=== PATIENT | male | born 1960 | race Hispanic/Latino ===

== ENCOUNTER 2019-01-06 05:56 | Day surgery (SDC) | payer BC, MEDICARE ==
[~2019-01-06 05:56] MED LIST: ANCEF/STERILE WATER 2 GM/20 ML IV NR
[2019-01-06] MEDS ORDERED: LACTATED RINGERS 1,000 ML ONE (06:36)
[2019-01-06] MEDS ORDERED: LACTATED RINGERS 1,000 ML IV SCH (07:00)
[2019-01-06] MEDS ORDERED: DIPRIVAN 10 MG/ML IV ONE (07:25)
[2019-01-06] MEDS ORDERED: SUBLIMAZE ONE (07:25)
--- NOTE | 2019-01-06 07:27 | Anesthesia Consultation ---
Anesthesia Consult and Med Hx Date of service: 01/06/19 - Airway Anesthetic Teeth Evaluation: Good ROM Head & Neck: Adequate Mental/Hyoid Distance: Adequate Mallampati Class: Class II Intubation Access Assessment: Good - Pulmonary Exam CTA: Yes - Cardiac Exam Cardiac Exam: RRR - Pre-Operative Health Status ASA Pre-Surgery Classification: ASA3 Proposed Anesthetic Plan: General - Pulmonary Hx Smoking: Yes (1 PPD X 45 YRS- STOPPED X 3 MONTHS) Hx Asthma: Yes ( CHILD ONLY) Hx Sleep Apnea: No (WALT PRE SCREEN HIGH RISK) - Cardiovascular System Hx Hypertension: Yes (1997) Hx Coronary Artery Disease: Yes Hx Heart Attack/AMI: (04/08/15 EKG reads hx of inferior infarct. Pt denies heart attack) Hx Angina: No Hx Valvular Heart Disease: Yes (MITRAL VALVE REPAIR 1998) Hx Heart Murmur: Yes (CAUSES NO PROBLEMS) - Central Nervous System Hx Neuromuscular Disorder: No CVA: No Hx Back Pain: Yes (BACK AND HIP PAIN) Hx Psychiatric Problems: No - Gastrointestinal Hx Gastroesophageal Reflux Disease: Yes - Endocrine Hx Renal Disease: Yes (hx urinary stenosis/retention) Hx Insulin Dependent Diabetes: No Hx Hypothyroidism: Yes (RADIATION 2003 , ON DAILY MEDS) - Hematic Hx Anemia: (HIV+) - Other Systems Hx Alcohol Use: Yes (weekends social) Hx Substance Use: No Hx Cancer: No
--- NOTE | 2019-01-06 07:28 | Anesthesia Day of Surgery ---
Anesthesia Day of Surgery - Day of Surgery Patient Examined: Yes Patient H&P Reviewed: Yes Patient is NPO: Yes
[2019-01-06] MEDS ORDERED: XYLOCAINE MPF 2% ONE (07:29)
[2019-01-06] MEDS ORDERED: ZOFRAN ONE (07:30)
[2019-01-06] MEDS ORDERED: ROBINUL ONE (07:30)
[2019-01-06] MEDS ORDERED: OMNIPAQUE 300 MG/50 ML (CATH LAB) IV ONE (08:05)
--- NOTE | 2019-01-06 08:16 | Short Stay Summary ---
Short Stay Documentation Date of service: 01/06/19 - History H&P: obtained from office - Allergies and Medications Current Medications: Allergies Sulfa (Sulfonamide Antibiotics) Allergy (Verified 04/05/15 12:42) Hives Home Medications Medication Instructions Recorded Confirmed Last Taken Type Levothyroxine [Synthroid] 150 mcg PO QAM 04/05/15 12/28/18 01/06/19 04:00 History Olmesartan (Nf) [Benicar (Nf)] 40 mg PO QDAY 04/05/15 12/28/18 01/06/19 04:00 History Verapamil [Calan] 120 mg PO DAILY 04/05/15 12/28/18 01/06/19 04:00 History Bictegrav/Emtricit/Tenofov Ala 1 each PO DAILY 12/28/18 12/28/18 01/06/19 04:00 History [Biktarvy 50-200-25 mg (Nf)] Active Medications Cefazolin Sodium (Ancef/Sterile Water 2 Gm/20 Ml) 2 gm IV PREOP NR Stop: 01/06/19 23:59 Lactated Ringer's (Lactated Ringers) 1,000 mls @ 100 mls/hr IV DIRECT TIFFANY - Brief post op/procedure progress note Date of procedure: 01/06/19 Pre-op diagnosis: urethral stricture Post-op diagnosis: same Procedure: cysto, dviu, rpg woth 16F cueva Anesthesia: GETA Surgeon: PAOLO FIELD Estimated blood loss: none Condition: stable - Hospital course Hospital course: [facility] [place] on chart - Disposition Condition at discharge: Stable Disposition: DC-01 TO HOME OR SELFCARE Short Stay Discharge Plan Follow up with: WHITNEY HENDERSON [Other] - 7 Days
--- NOTE | 2019-01-06 09:27 | Fluoroscopy Report ---
FLUOROSCOPY RETROGRADE UROGRAPHY FLUOROSCOPY RETROGRADE URETHROGRAM HISTORY: Urethral stricture. FINDINGS: Fluoroscopy was provided by radiology during retrograde urography by the urologist. [There is normal filling of both renal collecting systems. No filling defect or abnormal dilatation i s identified.] Retrograde urethrogram images are limited. Please correlate with the procedural report by Dr. Haque. IMPRESSION: Unremarkable exam. Fluoroscopy time: 25 seconds Fluoroscopic images: 7 Signer Name: Espinoza Jimenez Jr, MD Signed: 01/06/2019 9:23 AM Workstation Name: [id number]
--- NOTE | 2019-01-06 11:35 | Operative Report ---
PREOPERATIVE DIAGNOSIS: Recurrent urethral stricture. POSTOPERATIVE DIAGNOSIS: Recurrent urethral stricture. PROCEDURE: Cystoscopy, direct vision internal urethrotomy, urethrogram, bilateral retrograde pyelograms. SURGEON: Garrick Haque MD ANESTHESIA: General. ESTIMATED BLOOD LOSS: Minimal. FLUIDS: Crystalloid. COMPLICATIONS: None. INDICATIONS: This patient is a 58-year-old gentleman known to our service, actually seen by Dr. Rusty De Leon in the past, has a history of urethral stricture. Also of note had an orchiectomy in ____ by Dr. 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 He is HIV positive. He has had worsening urinary frequency, urgency, urinary tract infection. He has had recurrent strictures. He was offered self dilation daily or intermittently; however, he has been noncompliant. I also offered to see Dr. Suarez for possible reconstruction. At this point, he wants to proceed with cystoscopy, possible internal urethrotomy. Risks, benefits, and complications were explained. DESCRIPTION OF PROCEDURE: The patient was taken to the operative suite, placed in a supine position. After adequate general anesthesia, placed in a dorsal lithotomy position, prepped and draped in a sterile fashion. Pancystourethroscopy was performed with a 22-[place] Storz cystoscope. Obvious bulbar stricture could be appreciated fairly dense. A retrograde urethrogram was obtained, which revealed a narrow stricture at the bulb. Dye could be seen in the bladder. I was able to negotiate a wire. Cold knife was used to make a cut at the 12 o'clock position. The scope advanced without difficulty. With the wire in place, cystoscopy was then performed, bilateral retrograde pyelograms. No hydro or filling defect. Bladder, no tumors or stones were noted. Scope was removed. A 16-Latvian gulkana tip catheter was placed over the wire. Rectal exam was benign. He was extubated. He will go home on [email or web address] and follow up in the office. JOB# [id number] [facility]
--- NOTE | 2019-01-06 12:47 | Post Anesthesia Evaluation ---
- Post Anesthesia Evaluation Patient Participated: Yes Airway Patent: Yes Stable Respiratory Function: Yes Nausea/Vomiting: No Temp > 96.8F: Yes Pain Manageable: Yes Adequeate Hydration: Yes Anesthesia Complications: No
[2019-01-06 14:30] VITALS: BP 128/77
== END 2019-01-06 10:15 | disposition home or self-care (01) ==
LOC: OR 05:56
PROVIDERS: ATTEND Urology
DX: N35.919 Unspecified urethral stricture, male, unspecified site (principal); I11.0 Hypertensive heart disease with heart failure; I50.9 Heart failure, unspecified; I25.10 Atherosclerotic heart disease of native coronary artery without angina pectoris; J45.909 Unspecified asthma, uncomplicated; K21.9 Gastro-esophageal reflux disease without esophagitis; E03.9 Hypothyroidism, unspecified; Z72.89 Other problems related to lifestyle; Z87.891 Personal history of nicotine dependence; Z79.899 Other long term (current) drug therapy; Z88.2 Allergy status to sulfonamides; Z87.440 Personal history of urinary (tract) infections; Z98.890 Other specified postprocedural states; Z86.2 Personal history of diseases of the blood and blood-forming organs and certain disorders involving the immune mechanism
CPT/HCPCS: 52276; 74420; C1769; J0690; J2405; J2704; J3010; J7120; Q9967; 74450